=== PATIENT | female | born 2000 | race Caucasian/White ===

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

== ENCOUNTER 2022-08-02 04:16 | Emergency (ER) | payer OTHER, SELFPAY ==
[2022-08-02 04:22] VITALS: BP 139/80; PULSE 83; RESP 18; TEMP 36.3; O2SAT 100
--- NOTE | 2022-08-02 05:19 | ED.GENADULT ---
HPI - General Adult General Chief complaint: Overdose <Jose Antonio Llanes MD - Last Filed: 08/02/22 07:11> Stated complaint: intentional overdose <Jose Antonio Llanes MD - Last Filed: 08/02/22 07:11> Time Seen by Provider: 08/02/22 05:04 <Jose Antonio Llanes MD - Last Filed: 08/02/22 07:11> History of Present Illness HPI narrative: this is a 22-year-old female presenting ED for suicidal attempt. She said she took 30-40 200 mg pills of ibuprofen. She said she took this to unalive herself. Patient says she attempted to commit suicide last week by taking Benadryl but it just made her sleepy. Patient currently denies suicidal or homicidal ideation. She denies use of alcohol. She is positive for marijuana. She has not been taking her medicine for depression and anxiety. Patient never been hospitalized for psychiatric illness. <Jose Antonio Llanes MD - Last Filed: 08/02/22 07:11> Related Data Home medications: Home Medications Medication Instructions Recorded Confirmed levonorgestrel-ethinyl estradiol 1 tablet PO DAILY 02/08/20 02/08/20 0.1 mg-20 mcg tablet (Sronyx) <Jose Antonio Llanes MD - Last Filed: 08/02/22 07:11> Allergies/adverse reactions: Allergies Allergy/AdvReac Type Severity Reaction Status Date / Time No Known Allergies Allergy Unknown Unverified 02/08/20 15:13 <Jose Antonio Llanes MD - Last Filed: 08/02/22 07:11> [facility] Past Medical History Medical History: Medical History Asthma Fractures Left fifth finger on 06/23/2014 <Jose Antonio Llanes MD - Last Filed: 08/02/22 07:11> Exam Narrative: APPEARANCE: No apparent distress. Head: atraumatic. EYES: EOMI, NOSE: Atraumatic NECK: Trachea midline RESPIRATORY: No increased rate of breathing , clear to auscultation CARDIOVASCULAR: RRR, ABDOMINAL: Non-distended, soft no guarding or rebound MUSCULOSKELETAl: No obvious deformities NEURO: Alert. Moving 4/4 extremities SKIN:: Warm, dry. Normal color PSYCHIATRIC: Normal affect <Jose Antonio Llanes MD - Last Filed: 08/02/22 07:11> Course Course Emergency Course: Mario Alberto: Signed out to the oncoming physician pending medical clearance and psych evaluation. <Jose Antonio Llanes MD - Last Filed: 08/02/22 07:11> Zych: Signed out to the oncoming physician pending medical clearance and psych evaluation. 1225: Patient medically cleared for psychiatric hospitalization. Patient evaluated by crisis who feels patient needs admission. [facility] has accepted the patient at 1215 and Allen KRUSE is the accepting. <Guerrero Amaya MD - Last Filed: 08/02/22 12:26> Vital Signs Vital signs: Vital Signs Temperature 97.4 F L 08/02/22 04:22 Pulse Rate 83 08/02/22 04:22 Respiratory Rate 18 08/02/22 04:22 Blood Pressure 139/80 08/02/22 04:22 Pulse Oximetry 100 08/02/22 04:22 Oxygen Delivery Room Air 08/02/22 04:22 Temperature 98 F 08/02/22 11:04 Pulse Rate 70 08/02/22 11:04 Respiratory Rate 18 08/02/22 11:04 Blood Pressure 113/53 L 08/02/22 11:04 Pulse Oximetry 94 08/02/22 11:04 Oxygen Delivery Room Air 08/02/22 04:22 <Jose Antonio Llanes MD - Last Filed: 08/02/22 07:11> Vital Signs Temperature 97.4 F L 08/02/22 04:22 Pulse Rate 83 08/02/22 04:22 Respiratory Rate 18 08/02/22 04:22 Blood Pressure 139/80 08/02/22 04:22 Pulse Oximetry 100 08/02/22 04:22 Oxygen Delivery Room Air 08/02/22 04:22 Temperature 98 F 08/02/22 11:04 Pulse Rate 70 08/02/22 11:04 Respiratory Rate 18 08/02/22 11:04 Blood Pressure 113/53 L 08/02/22 11:04 Pulse Oximetry 94 08/02/22 11:04 Oxygen Delivery Room Air 08/02/22 04:22 <Guerrero Amaya MD - Last Filed: 06/26/23 12:26> Medical Decision Making MDM Narrative Medical decision making narrative: -Presentation: 22-year-old female presenting with intentional overdose of ibuprofen. She
--- NOTE | 2022-08-02 05:51 | PC.NURSE ---
0566 - Contacted [place] [facility], spoke with YVONNE Hewitt. Suggested Protonix as needed for stomach discomfort and supportive care. Ibuprofen generally ok even in large doses. Normal SI/HI/OD labs.
[2022-08-02 06:17] LABS: Basophils Absolute Auto 0.1 K/mm3 (0.0-0.1); Basophils Percent Auto 0.8 % (0.2-1.2); Eosinophils Absolute Auto 0.1 K/mm3 (0-0.3); Eosinophils Percent Auto 1.6 % (0-4.4); Hematocrit 42.7 % (37.0-47.0); Hemoglobin 14.2 g/dL (12.0-15.0); Immature Granulocyte Absolute 0.02 K/mm3 (0.00-0.031); Immature Granulocyte Percent A 0.3 % (0-0.5); Lymphocytes Percent Auto 30.8 % (18.3-44.2); Mean Corpuscular HGB Conc 33.3 g/dl (32-36); Mean Corpuscular Hemoglobin 28.9 pg (26-34); Mean Corpuscular Volume 86.8 fl (80-100); Mean Platelet Volume 10.3 fl (7.4-10.4); Monocytes Absolute Auto 0.5 K/mm3 (0.1-0.6); Monocytes Percent Auto 7.2 % (2.6-8.5); Neutrophils Absolute Auto 4.4 K/mm3 (1.3-6.7); Neutrophils Percent Auto 59.3 % (45.5-73.1); Platelet Count Result 379 k/mm3 (150-375); Red Blood Count 4.92 M/mm3 (4.2-5.4); Red Cell Distribution Width 12.7 % (11.5-14.5); White Blood Count 7.5 K/mm3 (4.5-10.0)
[2022-08-02] MEDS: SODIUM CHLORIDE 0.9% IV 3,000 ML 999 ML IV CONT (06:17)
[2022-08-02] MEDS: ONDANSETRON INJ 4 MG/2 ML VIAL IV PUSH (06:18)
[2022-08-02 06:21] LABS: Acetaminophen < 10 ug/mL (10-30); Alanine Aminotransferase 17 U/L (6-35); Alkaline Phosphatase 96 U/L (38-126); Anion Gap 15 mmol/L (8-16); Aspartate Amino Transferase 24 U/L (14-36); Bilirubin,Total 0.5 mg/dL (0.2-1.3); Blood Urea Nitrogen 6 mg/dL (7-17); Calcium 9.6 mg/dL (8.4-10.2); Carbon Dioxide 20 mmol/L (22-30); Chloride 106 mmol/L (98-107); Estimated CRCL calculation 120 ml/min; Estimated Glomerular Filt Rate > 60; Ethanol < 10 mg/dL (<10); Glucose 97 mg/dL (65-110); Potassium 3.9 mmol/L (3.4-5.0); Salicylate < 1.0 mg/dL (2-20); Sodium 141 mmol/L (137-145)
[2022-08-02 06:25] LABS: Appearance Urine Clear (Clear); Bacteria Urine None Seen /hpf; Bilirubin Urine Negative (Negative); Blood Urine 3+ (Negative); Color Urine Yellow (Yellow); Glucose Urine UA Negative (Negative); Ketones Urine Negative (Negative); Leukocyte Esterase Ur 1+ LEU/UL (Negative); Nitrate Urine Negative (Negative); Non Pathogenic Casts 0-2; Protein Urine Negative (Negative); Specific Grav Ur 1.008 (1.001-1.035); Squamous Epithelial Cell Urine Occasional /hpf (Few); Urobilinogen Urine 0.2 mg/dL (<2.0); pH Urine 5.5 (5.0-9.0)
[2022-08-02 06:34] LABS: Amphetamine Screen Urine Negative (Negative); Barbiturate Screen Urine Negative (Negative); Benzodiazepines Screen Urine Negative (Negative); Cannabinoid Screen Urine Negative (Negative); Cocaine Screen Urine Negative (Negative); Methadone Screen Urine Negative (Negative); Opiate Screen Urine Negative (Negative); Phencyclidine Screen Urine Negative (Negative)
[2022-08-02 06:35] LABS: Add Urine Microscopic? YES
[2022-08-02 06:47] LABS: SARS-CoV-2 RNA PCR Negative (Negative)
--- NOTE | 2022-08-02 07:30 | ECG_ITS ---
Measurements Intervals [place] Rate: 92 P: 68 NV: 138 QRS: 59 QRSD: 80 T: 50 QT: 345 QTc: 427 Interpretive Statements SINUS RHYTHM NO PREVIOUS ECG AVAILABLE FOR COMPARISON Electronically Signed On 08-03-2022 13:03:30 CDT by Geoffrey Woodall M.D.
--- NOTE | 2022-08-02 08:56 | PC.NURSE ---
Precautionary Breakfast tray given to patient
--- NOTE | 2022-08-02 10:51 | PC.NURSE ---
After speaking with Crisis, Crisis states pt will be an involuntary admit and have started to try and get placement for pt at [place], [facility], or [place].
[2022-08-02 11:04] VITALS: BP 113/53; PULSE 70; RESP 18; TEMP 36.6; O2SAT 94
--- NOTE | 2022-08-02 12:25 | PC.NURSE ---
1224 BLS transfer to the [place] [facility]24 [facility] called waiting for acceptance
--- NOTE | 2022-08-02 12:33 | PC.NURSE ---
1231 Shane CRAWFORD accepted [facility] the [facility] will call back with eta
[2022-08-02 14:50] VITALS: BP 116/75; PULSE 62; RESP 18; O2SAT 97
== END 2022-08-02 15:00 ==
PROVIDERS: Emergency Provider Emergency Medicine
DX: F32.A Depression, unspecified (principal); T39.312A Poisoning by propionic acid derivatives, intentional self-harm, initial encounter; F41.9 Anxiety disorder, unspecified; F12.929 Cannabis use, unspecified with intoxication, unspecified; Z20.822 Contact with and (suspected) exposure to COVID-19
CPT/HCPCS: 36415; 80053; 80307; 81001; 81025; 84443; 85025; 87086; 87635; 93005; 96361; 96374; 99285; J2405; J7030

== ENCOUNTER 2023-07-27 10:20 | Outpatient (CLI) | payer OTHER, SELFPAY ==
[2023-07-27 12:43] LABS: Hematocrit 39.9 % (37.0-47.0); Hemoglobin 13.2 g/dL (12.0-15.0); Mean Corpuscular HGB Conc 33.1 g/dl (32-36); Mean Corpuscular Hemoglobin 29.3 pg (26-34); Mean Corpuscular Volume 88.7 fl (80-100); Mean Platelet Volume 10.2 fl (7.4-10.4); Platelet Count Result 321 k/mm3 (150-375); Red Cell Distribution Width 13.4 % (11.5-14.5); White Blood Count 5.2 K/mm3 (4.5-10.0)
[2023-07-27 13:22] LABS: Alanine Aminotransferase 13 U/L (6-35); Albumin Level 4.5 g/dL (3.5-5.1); Alkaline Phosphatase 63 U/L (38-126); Anion Gap 6 mmol/L (4-12); Aspartate Amino Transferase 52 U/L (14-36); Bilirubin,Total 0.8 mg/dL (0.2-1.3); Blood Urea Nitrogen 6 mg/dL (7-17); Calcium 9.1 mg/dL (8.4-10.2); Carbon Dioxide 26 mmol/L (22-30); Chloride 107 mmol/L (98-107); Cholesterol 129 mg/dL (0-200); Estimated Glomerular Filt Rate > 60; Glucose 79 mg/dL (65-110); HDL Direct 52 mg/dL; Potassium 4.3 mmol/L (3.4-5.0); Sodium 139 mmol/L (137-145); Triglycerides 49 mg/dL (<150)
[2023-07-27 13:34] LABS: LDL Cholesterol Direct 71 mg/dL
== END 2023-07-27 10:21 | disposition home or self-care (01) ==
LOC: ANHGOSHLAB 10:22
PROVIDERS: PCP Family Medicine; Visit Provider Family Medicine
DX: I47.10 Supraventricular tachycardia, unspecified (principal); F41.9 Anxiety disorder, unspecified; Z79.899 Other long term (current) drug therapy
CPT/HCPCS: 36415; 80053; 80061; 84443; 85027

== ENCOUNTER 2023-11-22 14:54 | Emergency (ER) | payer OTHER, SELFPAY ==
[2023-11-22 15:23] VITALS: BP 111/66; PULSE 68; RESP 16; TEMP 36.3; O2SAT 100
[2023-11-22 15:43] LABS: EDCOVIDSCREEN Negative (Negative); EDINFLUASCREEN Negative (Negative); EDINFLUBSCREEN Negative (Negative)
--- NOTE | 2023-11-22 15:45 | ED.GENADULT ---
HPI - General Adult General Chief complaint: Upper Respiratory Infection Stated complaint: bodyaches Time Seen by Provider: 11/22/23 15:45 Source: patient, RN notes reviewed and old records reviewed Mode of arrival: ambulatory Limitations: no limitations History of Present Illness HPI narrative: 23-year-old female presents to the [facility] with complaints of body aches and generalized not feeling well. Symptoms started 2 days ago. Reports that she needs a note to go back to school and clinical Tried calling primary care provider who is get in today. No treatment prior to arrival Related Data Home Medications Medication Instructions Recorded Confirmed bupropion HCl 150 mg 24 hr tablet, 150 mg PO DAILY 07/19/23 11/22/23 extended release propranolol 20 mg tablet 20 mg PO BID 07/19/23 11/22/23 levonorgestrel 21 mcg/24 hr (up to 1 device intrauterine ONCE 07/26/23 11/22/23 8 years) 52 mg intrauterine device (Mirena) cariprazine 3 mg capsule (Vraylar) 3 mg PO DAILY 11/22/23 11/22/23 Allergies Allergy/AdvReac Type Severity Reaction Status Date / Time No Known Allergies Allergy Unknown Unverified 11/22/23 15:55 Review of Systems Review of Systems: All systems reviewed & are unremarkable except as noted in HPI and below Constitutional: Constitutional: Reports as per HPI, Reports body ache(s) and Reports fatigue Eyes: Eyes: Reports no additional eye complaints ENT: Reports system reviewed and no additional complaints, except as documented Cardiovascular: Cardiovascular: Reports no additional cardiovascular complaints, Denies chest pain and Denies dyspnea Respiratory: Respiratory: Reports no additional respiratory complaints, Denies chest congestion, Denies cough and Denies dyspnea Gastrointestinal: Gastrointestinal: Reports no additional gastrointestinal complaints, Denies abdominal pain, Denies nausea and Denies vomiting Musculoskeletal: Musculoskeletal: Reports no additional musculoskeletal complaints Integumentary/Breasts: Skin/Breast: Reports system reviewed and no additional complaints, except as docu Neurologic: Reports system reviewed and no additional complaints, except as documented Psychiatric: Psychiatric: Reports no additional psychiatric complaints Allergic/Immunologic: Allergic/Immunologic: Reports no additional allergic/immunologic complaints PMFSH Past Medical History Medical History Asthma Fractures Left fifth finger on 06/23/2014 Surgical History Surgical History H/O cardiac radiofrequency ablation Family History Family History Father Thyroid disorder Mother Diabetes mellitus Depression Hypertension Grandparent Depression Cerebrovascular accident Social History Social History Smoking status: Never smoker Alcohol intake: current Alcohol use details: socially - vodka, wine Substance use: never Do You Feel Safe in your Home?: Yes Lack of Transportation: No Lack of Food: Never True Current Housing: I Have Housing Concerned About Future Housing: No Difficulty Paying Gas/Electric Bills: No Difficulty Paying for Meds: No Currently Unemployed: No Education: High School Diploma/GED Difficulty w/ Childcare or Family Care: No Living arrangements: with family Comments At the time of my signature, I reviewed and agree with the nursing past medical, surgical, social, and family history. There is no relevant family history pertinent to the patient complaint. Exam Const: General: cooperative, healthy appearing, comfortable, no acute distress, well developed, alert and well nourished Nutritional Appearance: well nourished Orientation/consciousness: patient oriented x3 Limitations: no limitations HENMT: Head: normal to inspectio
== END 2023-11-22 16:04 | disposition home or self-care (01) ==
PROVIDERS: Emergency Provider Nurse Practitioner; PCP Family Medicine
DX: R52 Pain, unspecified (principal); Z20.822 Contact with and (suspected) exposure to COVID-19; J45.909 Unspecified asthma, uncomplicated
CPT/HCPCS: 87426; 87804; 99212; G0463

== ENCOUNTER 2024-03-12 16:18 | Emergency (ER) | payer OTHER, SELFPAY ==
--- NOTE | 2024-03-12 16:32 | ED.NAVMDI ---
HPI - Nausea/Vomiting/Diarrhea General Chief complaint: Nausea/Vomiting/Diarrhea Stated complaint: Stomach Pain/Vomiting/Diarrhea Time Seen by Provider: 03/12/24 16:32 Source: patient Mode of arrival: ambulatory Limitations: no limitations History of Present Illness HPI Narrative: Lidia is a 23-year-old female patient presenting to the clinic today with complaints of nausea, vomiting, diarrhea, and abdominal cramping times 2-3 days. She reports no known fever, chills, body ache. Has had multiple watery diarrhea stools and has vomited 4 times. Denies any bloody stools. [place] faint earlier today but now feels better. Denies any muscle cramping. Denies any vaginal discharge or odors or any urinary symptoms Related Data Home Medications ?Medication ?Instructions ?Recorded ?Confirmed ?Last Taken ?Type bupropion HCl 150 mg 24 hr tablet, 150 mg PO DAILY 07/19/23 11/22/23 Unknown History extended release propranolol 20 mg tablet 20 mg PO BID 07/19/23 11/22/23 Unknown History levonorgestrel (Mirena) 1 device intrauterine ONCE 07/26/23 11/22/23 Unknown History cariprazine 3 mg capsule (Vraylar) 3 mg PO DAILY 11/22/23 11/22/23 Unknown History Allergies Allergy/AdvReac Type Severity Reaction Status Date / Time No Known Allergies Allergy Unknown Verified 03/12/24 16:46 Review of Systems Review of Systems: Pertinent positives per HPI. Patient denies any fever, chills, rash, headache, visual changes, dizziness, cough, runny nose, sore throat, shortness of breath, chest pain, palpitations, constipation, or any urinary issues. [facility] Past Medical History Medical History Fractures Left fifth finger on 06/23/2014 Asthma Surgical History Surgical History H/O cardiac radiofrequency ablation Family History Family History Father Thyroid disorder Mother Diabetes mellitus Depression Hypertension Grandparent Depression Cerebrovascular accident Social History Social History Smoking status: Never smoker Alcohol intake: current Alcohol use details: socially - vodka, wine Substance use: never Do You Feel Safe in your Home?: Yes Lack of Transportation: No Lack of Food: Never True Current Housing: I Have Housing Concerned About Future Housing: No Difficulty Paying Gas/Electric Bills: No Difficulty Paying for Meds: No Currently Unemployed: No Education: High School Diploma/GED Difficulty w/ Childcare or Family Care: No Living arrangements: with family Comments At the time of my signature, I reviewed and agree with the nursing past medical, surgical, social, and family history. There is no relevant family history pertinent to the patient complaint. Exam Narrative: General: Well-developed, well nourished, in no apparent distress. Head: Normocephalic, atraumatic. Cardio: Regular rate and rhythm, s1 and s2 normal, no murmur appreciated. Resp: Clear to auscultation bilaterally, no rhonchi, rales, wheezing or rubs. Abdomen: Soft, pliable, bowel sounds present in all quadrants, non-tender to palpation, no organomegly, no CVAT tenderness. Course Course Emergency Course: Portions of this record may have been created with voice recognition software. Level of Care: Express Care Visit Vital Signs Vital signs: Vital Signs Temperature 36.3 C L 03/12/24 16:36 Pulse Rate 71 03/12/24 16:36 Respiratory Rate 16 03/12/24 16:36 Blood Pressure 100/60 03/12/24 16:36 Pulse Oximetry 100 03/12/24 16:36 Temperature 36.3 C L 03/12/24 16:36 Pulse Rate 71 03/12/24 16:36 Respiratory Rate 16 03/12/24 16:36 Blood Pressure 100/60 03/12/24 16:36 Pulse Oximetry 100 03/12/24 16:36 Vital signs reviewed MDM - Nausea/Vomiting/Diarrhea MDM Narrative Medical decision making narrative: At the time of visit patient is resting comfortably on the exam table. Patient appears to be nontoxic. Labs: Influenza testing was performed and negative in the clinic today. Plan: I suspect patient has gastroenteritis. Prescription for Levsin and Zofran was sent to the pharmacy P Supportive measures were discussed with the patient and they voiced understanding discharge instructions and agrees to treatment plan. Return precautions reviewed Differential Diagnosis Differential diagnosis: Likely traveler's diarrhea, food poisoning, gastroenteritis, clostridium difficile infection, drug-induced nausea and vomiting, dehydration and other (Influenza) Discharge Plan Discharge Clinical Impression: Gastroenteritis Patient Disposition: Home, Self-Care Condition: Stable Instructions: Antibiotic Form, Gastroenteritis (ED) Additional Instructions: Take prescription medications only as prescribed-ondansetron and Levsin Increase fluids and stay well hydrated Tylenol/motrin for pain/fever Eat a bland diet BRAT diet for diarrhea May take Imodium as needed for diarrhea as long as there is no blood in your stool Clear liquids x 24 hours then advance as tolerated for nausea/vomiting Go to the ED if you develop a worsening in your condition- high fever not controlled by Tylenol or Motrin, dehydration, weakness, lethargy, shortness of breath, or chest pain. Follow up with your PCP in 3-5 days if symptoms persist. Patient Language: [place] Prescriptions: New hyoscyamine sulfate [Levsin] 0.125 mg tablet 0.125 mg PO QID PRN (Reason: dyspepsia) 3 Days Qty: 12 0RF ondansetron 4 mg tablet,disintegrating 4 mg PO Q6H PRN (Reason: nausea and vomiting) 3 Days Qty: 12 0RF No Action Vraylar 3 mg capsule 3 mg PO DAILY propranolol 20 mg tablet 20 mg PO BID bupropion HCl 150 mg tablet extended release 24 hr 150 mg PO DAILY Mirena 21 mcg/24 hr (8 yrs) 52 mg intrauterine device 1 device intrauterine ONCE Rx Instructions: as a single dose Follow-up/Referrals: Krissy Pinzon DO [Primary Care Provider] - Stand Alone Forms: Work/School Release IP Time of Disposition: 16:57 Quality NIHSS Nursing Documentation ED NIHSS nursing documentation: reviewed/agree
[2024-03-12 16:36] VITALS: BP 100/60; PULSE 71; RESP 16; TEMP 36.3; O2SAT 100
[2024-03-12 17:01] LABS: EDINFLUASCREEN Negative (Negative); EDINFLUBSCREEN Negative (Negative)
== END 2024-03-12 17:00 | disposition home or self-care (01) ==
PROVIDERS: Emergency Provider Nurse Practitioner Family; PCP Family Medicine
DX: K52.9 Noninfective gastroenteritis and colitis, unspecified (principal); J45.909 Unspecified asthma, uncomplicated
CPT/HCPCS: 87804; 99213; G0463